=== PATIENT | female | born 1940 | race Caucasian/White ===

== ENCOUNTER 2016-07-01 14:33 | Inpatient (IN) | payer OTHER ==
--- NOTE | ~2016-07-01 | EKG ---
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
--- NOTE | ~2016-07-01 | CATHLAB ---
[facility] [address] [place] [address] INVASIVE PROCEDURE REPORT Name: SOSA TIRADO Room #: 210-P [facility] IN M.R.#: [id number] Admission: 07/01/16 Attend Phys: Cecilio Starr, Discharge: 07/02/16 Date of : 40 Date of Service: 07/02/16 0858 Report #: [id number] THIS REPORT FOR: //name// CC: Cecilio Farah MD PROCEDURES: Right and left heart catheterization. DESCRIPTION OF PROCEDURE: The patient brought to the catheterization lab with abnormal stress test, recurrent chest pain and marked dyspnea and shortness of breath. Ruled out for infarct. Was admitted yesterday from the office. Right groin prepped and draped in sterile manner. 1% Xylocaine was used for local anesthesia. Versed was given for conscious sedation. A 6-Maltese sheath, right femoral artery, 7-Maltese right femoral vein under sterile without complication. Straight pigtail catheter performed single PEREZ ventriculogram. LV function was preserved and AP aortogram. LV function was preserved. Abdominal aorta was mildly was ectatic, no definite aneurysm. Renal arteries have mild disease. The FL4 for left coronary system, FR4 for the right coronary system, multiple views and obliques were taken. There was trivial plaquing in the right dominant system. No significant occlusive disease, LV function was preserved. Then utilized Dennison-Delaney catheter, right heart catheterization with cardiac output by thermodilution. The patient tolerated this well also. No indication for intervention. Pulmonary pressures were not elevated. See the hemodynamics. Mynx closure was utilized for the femoral artery and pressure for the femoral vein sheath, without complication. Transferred back to CCU, probable discharge protocol, possibly pulmonary evaluation. HEMODYNAMICS: RA mean of 4. RV , PA 30/10. Pulmonary capillary wedge mean 8-10. Cardiac output 3.77. Cardiac index 2.4. LV was 136/6, aortic 146/76. IMPRESSION: 1. Normal coronary anatomy in a right dominant system and minimal plaquing proximal calcification noted, no occlusive disease. 2. Normal left ventricular size and systolic function, EF 60%. 3. Abdominal aorta is mildly ectatic without significant aneurysm. Renal arteries appear to be patent. 4. Successful right heart catheterization is deemed above without evidence of pulmonary hypertension. RECOMMENDATIONS: Continue aggressive risk factor modification, will have formal [facility] [address] [place] [address] INVASIVE PROCEDURE REPORT Name: CANDIDASOSA J Room #: 210-P [facility]#: [id number] Admission: 07/01/16 Attend Phys: Cecilio Starr, Discharge: 07/02/16 Date of : 40 Date of Service: 07/02/16 0858 Report #: [id number] pulmonary rehabilitation or formal pulmonary reevaluation. Cardiovascular status from this procedure appears to be stable. <ELECTRONICALLY SIGNED> By: Cecilio Starr MD, FACC 07/06/16 0903 0858 1130 Cecilio Starr MD, FAC /nt
--- NOTE | ~2016-07-01 | H ---
[facility] [place] [address] HISTORY AND PHYSICAL Name: SOSA TIRADO Room #: 210-P DIS IN M.R.#: [id number] Admission: 07/01/16 Attend Phys: Cecilio Starr MD, Discharge: 07/02/16 Date of : 40 Report #: [id number] THIS REPORT FOR: //name// CC: Cecilio Farah MD DATE OF SERVICE: 07/01/2016 HISTORY OF PRESENT ILLNESS: The patient is a 76-year-old female, well known to myself and also Dr. Farah. She came in a week or so ago with recurrent chest pain, pressure with accelerating nature, marked decrease in exercise tolerance, substernal chest discomfort with gardening. She had cardiac catheterization in [place] in 2007 with mild three-vessel disease. No interventions since that time. A long time tobacco user and still smokes a pack a day. She has been compliant with her medications. Her lipids have been favorable. Her last cholesterol 171, HDL was greater than 100, and LDL was not available. Currently, an abnormal nuclear stress test suggesting lateral wall ischemia. That report to follow. Feeling poorly after the procedure, we will directly admit her to the CCU for cardiac catheterization in the morning. Nonspecific EKG changes with sinus rhythm. She is on Prevacid, Zolpidem, baby aspirin, simvastatin, CoQ10, and ibuprofen. PAST MEDICAL HISTORY: Mild coronary artery disease, chest pain, hypertension, tobacco use, COPD, and DJD. FAMILY HISTORY: Mother had an infarct and a pacemaker. Has a child with cardiomyopathy, idiopathic. SOCIAL HISTORY: She is . She is a half a pack to whole pack smoker, social alcohol. Children are healthy except for the one with cardiomyopathy, 2 children biologic. She is . ALLERGIES: No known drug allergies. REVIEW OF SYSTEMS: Negative except for progressive dyspnea and fatigue as stated above. PHYSICAL EXAMINATION: GENERAL: Blood pressure 138/92, pulse is 80s and regular. HEENT: Eyes, no xanthelasmas. Pharynx is clear. NECK: Shows preserved upstrokes without JVD or bruits. Carotid upstrokes are preserved. No definite bruits. LUNGS: Prolonged expiratory phase. CARDIAC: Distant heart tones, S1, S2. ABDOMEN: Soft. No HSM or abdominal bruit. [facility] [address] [place] [address] HISTORY AND PHYSICAL Name: SOSA TIRADO Room #: 210-P [facility] IN M.R.#: [id number] Admission: 07/01/16 Attend Phys: Cecilio Starr MD, Discharge: 07/02/16 Date of : 40 Report #: [id number] EXTREMITIES: Femoral arteries have slightly diminished pulses, right femoral bruit. NEUROLOGIC: Intact. MUSCULOSKELETAL: Generalized arthritic changes. Recent test today, nuclear stress test pending formal report, but lateral wall ischemia and carotid Doppler, mild bilateral plaquing from 06/25/2016. ASSESSMENT: 1. Accelerating angina/coronary artery disease, abnormal nuclear stress test. 2. Hypertension. 3. Hypercholesterolemia. 4. Chronic obstructive pulmonary disease, continued tobacco use. RECOMMENDATIONS AND PLAN: We will proceed with cardiac catheter. We will admit to CCU. Aspirin, statin, nitro paste if necessary for recurrent pain and we will proceed to the cathode ray tube assembler in the a.m. We will obtain stat lab including a troponin. Risks, benefits, and alternatives were discussed with the patient and Mrs. Tirado. We will proceed to the catheterization lab. Thank you for asking us to assist in the care of this patient. <ELECTRONICALLY SIGNED> By: Cecilio Starr MD, FACC 07/06/16 0904 1417 1552 Cecilio Starr MD, FACC /nt
[2016-07-01 15:19] LABS: ABSOLUTE NEUTROPHILS 5.1 thou/uL (1.4-8.2); BASOPHILS 0.4 % (0.0-2.0); EOSINOPHILS 1.1 % (0.0-3.0); HEMATOCRIT 47.4 % (37.0-47.0); HEMOGLOBIN 16.3 gm/dL (12.0-15.0); LYMPHOCYTES 25.9 % (24.0-44.0); MCH 33.4 pg (26.0-34.0); MCHC 34.5 g/dL (28.0-37.0); MCV 96.8 fL (80.0-100.0); MONOCYTES 8.8 % (1.0-8.0); PLATELET COUNT 215 thou/uL (150-400); POLYS 63.8 % (36.0-66.0); RDW 13.9 % (10.5-14.5)
[2016-07-01 15:21] LABS: MANUAL DIFF NO
[2016-07-01 15:31] LABS: ALBUMIN 4.1 g/dL (3.4-5.0); CALCIUM 9.7 mg/dL (8.5-10.1); CREATININE 0.9 mg/dL (0.6-1.3); POTASSIUM 4.1 mmol/L (3.5-5.1); TOTAL BILIRUBIN 0.6 mg/dL (<0.1-1.0); TOTAL PROTEIN 7.2 g/dL (6.4-8.2)
[2016-07-01] MEDS ORDERED: PREVACID30 MG PO (15:41)
[2016-07-01] MEDS ORDERED: AMBIEN 5 MG TABL5 M1 PO (15:42)
[2016-07-01] MEDS ORDERED: ZOCOR20 MG PO (15:42)
[2016-07-01] MEDS ORDERED: ASPIR 8181 M1 PO (15:43)
[2016-07-01] MEDS ORDERED: ADVIL100 M2 PO (15:45)
[2016-07-01] MEDS ORDERED: CRANBERRY200 MG PO (15:46)
[2016-07-01] MEDS ORDERED: STOOL SOFTENER100 MG PO (15:46)
[2016-07-01] MEDS ORDERED: ESTROVEN 155 M155 MG PO (15:46)
[2016-07-01] MEDS ORDERED: CO Q-10100 MG PO (15:47)
[2016-07-01] MEDS ORDERED: VITAMIN D3400 UNIT PO (15:47)
[2016-07-02 04:12] LABS: CHOLESTEROL 156 mg/dL (<200); HDL CHOLESTEROL 102 mg/dL (>40); LDL CHOLESTEROL 47 mg/dL (<100); TC:HDL 1.5 Ratio (Not establshd); TRIGLYCERIDE 37 mg/dL (<150); VLDL 7 mg/dL (<40)
[2016-07-02 04:14] LABS: SERUM ASSESSMENT Clear
== END 2016-07-02 13:00 | disposition home or self-care (01) | DRG 287 ==
LOC: 2N 14:33
PROVIDERS: Internal Medicine Cardiovascular Disease
DX: I25.118 Atherosclerotic heart disease of native coronary artery with other forms of angina pectoris (principal); I10 Essential (primary) hypertension; E78.00 Pure hypercholesterolemia, unspecified; J44.9 Chronic obstructive pulmonary disease, unspecified; M19.90 Unspecified osteoarthritis, unspecified site; F17.210 Nicotine dependence, cigarettes, uncomplicated; Z79.82 Long term (current) use of aspirin; Z79.899 Other long term (current) drug therapy; Z82.49 Family history of ischemic heart disease and other diseases of the circulatory system
CPT/HCPCS: 10081

== ENCOUNTER → 2020-07-22 | Outpatient (CLI) | payer OTHER ==
[~2020-07-22] MED LIST: ADVIL100 M2 PO; AMBIEN 5 MG TABL5 M1 PO; ASPIR 8181 M1 PO; CO Q-10100 MG PO; CRANBERRY200 MG PO; ESTROVEN 155 M155 MG PO; PREVACID30 MG PO; STOOL SOFTENER100 MG PO; VITAMIN D3400 UNIT PO; ZOCOR20 MG PO
== END ==
LOC: SJCVCIMAG 09:39 → SJCVC 09:39
PROVIDERS: ATTEND Internal Medicine Cardiovascular Disease
DX: I73.9 Peripheral vascular disease, unspecified (principal); M79.604 Pain in right leg; M79.605 Pain in left leg; R94.31 Abnormal electrocardiogram [ECG] [EKG]; I45.2 Bifascicular block; E78.00 Pure hypercholesterolemia, unspecified; I25.10 Atherosclerotic heart disease of native coronary artery without angina pectoris; J44.9 Chronic obstructive pulmonary disease, unspecified; M25.559 Pain in unspecified hip; F17.210 Nicotine dependence, cigarettes, uncomplicated; Z79.82 Long term (current) use of aspirin; Z79.899 Other long term (current) drug therapy; Z82.49 Family history of ischemic heart disease and other diseases of the circulatory system

== ENCOUNTER → 2021-03-31 | Outpatient (CLI) | payer OTHER | LOC: SJCVC 10:07 | PROVIDERS: ATTEND Internal Medicine Cardiovascular Disease | DX: R94.31 Abnormal electrocardiogram [ECG] [EKG] (principal); I45.10 Unspecified right bundle-branch block; I25.10 Atherosclerotic heart disease of native coronary artery without angina pectoris; J44.9 Chronic obstructive pulmonary disease, unspecified; E78.00 Pure hypercholesterolemia, unspecified; F17.210 Nicotine dependence, cigarettes, uncomplicated; Z87.891 Personal history of nicotine dependence; Z79.82 Long term (current) use of aspirin; Z79.899 Other long term (current) drug therapy ==